=== PATIENT | male | born 1985 | race Caucasian/White ===

== ENCOUNTER 2017-08-17 09:51 | Emergency (ER) | payer MEDICAID ==
--- NOTE | 2017-08-17 11:03 | ED Physician Chart ---
ED Chief Complaint/HPI - Patient Information Date Seen:: 08/17/17 Time Seen:: 10:00 Chief Complaint:: HEROIN WITHDRAWL (NAUSEA, VOMITING, AND DIARRHEA) History of Present Illness:: THIS 31 YEAR OLD MALE WAS BROUGHT TO THE ER BY DEBRA MENG FOR MEDICAL CLEARANCE TO BOOK. HE HAD LAST USE HEROIN YESTERDAY A.M. AND TODAY HE HAS BEEN HAVING NAUSEA, VOMITING, DIARRHEA AND DIAPHORESIS. IN THE PAST 24 HOURS HE HAS HAD FIVE EPISODES OF VOMITING AND TWO EPISODES OF DIARRHEA. THERE WAS NO ASSOCIATED HEMATEMESIS OR BLOOD IN THE DIARRHEA. THE PATIENT HAS ALSO HAD CRAMPING ABDOMINAL PAIN WHICH IS DIFFUSE. THE CRAMPING IS A 9/10 SEVERITY. DOES NOT RADIATE INTO THE BACK. THIS EPISODE OF WITHDRAWAL SYMPTOMS IS ABOUT THE SAME SEVERITY IS WHAT HE HAS PREVIOUSLY EXPERIENCED. HE DENIES ANY OTHER MEDICAL PROBLEMS. Allergies:: Allergies Allergy/AdvReac Type Severity Reaction Status Date / Time No Known Allergies Allergy Verified 08/17/17 10:14 Vitals:: Vital Signs - 8 hr 08/17/17 10:15 Temp 97.9 F HR 87 RR 22 BP 135/94 O2 Sat % 98 Historian:: Patient Review:: Nurse's Note Reviewed (The reviewed nursing notes or reviewed on [facility] triage form.) ED Review of Systems - Review of Systems General/Constitutional: No fever, Chills, No weight loss, Diaphoresis, No edema , Loss of appetite Skin: No skin lesions, No rash, No bruising Head: No headache, No light-headedness Eyes: No loss of vision, No pain ENT: No earache, Nasal drainage, No sore throat Neck: No neck pain, No thyromegaly, No stiffness, No mass noted Cardio Vascular: No chest pain, Palpitations ( RAPID HEART RATE.), No orthopnea , No edema Pulmonary: No SOB, No cough, No sputum, No wheezing GI: Nausea, Vomiting, Diarrhea, Pain, No melena, No hematochezia, No constipation G/U: No frequency Musculoskeletal: Bone or joint pain, No back pain, Muscle pain Endocrine: No polyuria Psychiatric: Anxiety, No homicidal ideation, No auditory hallucination, No visual hallucination Hematopoietic: No bruising, No lymphadenopathy Allergic/Immuno: No urticaria, No angioedema Neurological: No syncope, No focal symptoms, Weakness ( This generalized), No seizure, No dizziness, No confusion, No vertigo ED Past Medical History - Past Medical History Past Medical History: No significant medical hx ( METHADONE) Social History: Smoker, Alcohol, Illicit Drug Use, Single ( AN[place] [employer] THAN THEY SAY WAS STILL'S IT'S ACTUALLY JUST A LITTLE BIT NORTH OF THE AIRPORT BUT IT'S RIGHT IN THE SAME YOU PASS THE SIGN THAT SAYS [facility]IRUD[facility] [place] ON [facility] WAS THAT I IS A LITTLE I WOULD LIKE SOMETHING BETTER THAN I LIKE THAT WILL ACTUALLY OKAY WITH THE DEBACLES AND GET IN AND OUT OF THE QUICK) Surgical History: None Family Medical History - Family Member Mother History Unknown: Yes ED Physical Exam - Physical Examination General/Constitutional: Well-developed, well-nourished, Alert, Non-toxic appearing, Ambulatory Other Gen/Cons comments:: RY. THE PATIENT HAS GENERALIZED DISCOMFORT FROM ABDOMINAL CRAMPING, VOMITING AND DIARRHEA. PATIENT IS AWAKE AND ALERT AND ABLE TO AMBULATE WITHOUT DIFFICULTY. Head: Atraumatic Eyes: Lids, conjuctiva normal, PERRL, EOMI Other Eyes comments:: TY. SCLERA ANICTERIC. Skin: Nl inspection, No rash, No skin lesions, No ecchymosis, Well hydrated, No lymphadenopathy ENMT: External ears, nose nl Other ENMT comments:: IC. THE PATIENT HAS A CLEAR NASAL DISCHARGE FROM BOTH SIDES OF THE NOSE. Neck: Nontender, Full ROM w/o pain, No JVD, No nuchal rigidity, No mass, No stridor Respiratory: Nl effort/Exclusion, Clear to Auscultation, No Wheeze/Rhonchi/Rales Cardio Vascular: RRR, No murmur, gallop, rubs, NL S1 S2 Other Cardio Vascular comments:: SE. PATIENT HAS ADEQUATE PULSES IN ALL FOUR EXTREMITIES. GI: No organomegaly, No hernia (ES. HYPERACTIVE BOWEL SOUND), Nondistended, No mass/bruits Other GI comments:: DS. NO EPIGASTRIC, RIGHT UPPER QUADRANT OR RIGHT LOWER QUADRANT TENDERNESS TO PALPATION. THERE IS MILD CARYL-UMBILICAL TENDERNESS WITHOUT ASSOCIATIVE REBOUND OR GARDING. RECTAL EXAM DEFERRED AT MY DISCRETION. ED Labs/Radiology/EKG Results - Lab Results Results: Laboratory Tests 08/17/17 08/17/17 12:40 12:40 WBC 8.3 RBC 4.52 Hgb 13.9 Hct 41.3 MCV 91.3 MCH 30.8 H MCHC Differential 33.7 RDW 12.9 Plt Count 233 MPV 7.9 Neutrophils % 75.4 Lymphocytes % 18.9 L Monocytes % 5.1 Eosinophils % 0.2 Basophils % 0.4 Sodium 132 L Potassium 4.6 Chloride 103 Carbon Dioxide 23.9 Anion Gap 9.7 BUN 17 Creatinine 0.7 Est GFR ( Amer) > 60.0 Est GFR (Non-Af Amer) > 60.0 BUN/Creatinine Ratio 24.3 Glucose 82 Calcium 9.2 Total Bilirubin 0.9 AST 253 H ALT 425 H Alkaline Phosphatase 103 Total Protein 7.0 Albumin 3.7 L Globulin 3.3 Albumin/Globulin Ratio 1.1 LABORATORY INTERPRETATION: THE CBC IS UNREMARKABLE IN THAT THERE IS NO LEUKOCYTOSIS, ANEMIA OR PLATELET DISORDER. METABOLIC STUDIES SHOW A MILD HYPONATREMIA OF 132 WHICH IS OF NO CLINICAL SIGNIFICANCE. THE REMAINDER OF THE ELECTRIC LIGHTS WERE ALL WITHIN NORMAL PARAMETERS. RENAL FUNCTION IS NORMAL. THERE IS MILD TO MODERATE ELEVATION OF LIVER FUNCTION STUDIES WITH A AST OF 253 AND AN ALT OF 425. ED Assessment - Assessment General Assessment: CASE SUMMARYTHIS 31-YEAR-OLD HEROINE ADDICT WAS BROUGHT TO THE EMERGENCY DEPARTMENT FOR TREATMENT OF NAUSEA, VOMITING AND DIARRHEA AND MEDICAL CLEARANCE TO BOOK.: OK.'S SYMPTOMS WERE ADDRESSED WITH IV NORMAL SALINE, IV ZOFRAN, AND IV ATIVAN. OVER THE COURSE OF THE EMERGENCY DEPARTMENT EVALUATION, THE PATIENT SIGNIFICANTLY IMPROVED. ED. HE WAS DEEMED MEDICALLY CLEAR FOR BOOKING AND DISCHARGED WITH THE PRESCRIPTION FOR ZOFRAN 4 MG 26H PRN FURTHER NAUSEA OR VOMITING. NG. HE WAS IN STABLE CONDITION WHEN DISCHARGE AND WILL HAVE ACCESS TO MEDICAL CARE IN THE [facility]. MDM DDX FOR NAUSEA, VOMITING, AND DIARRHEA. NOT ACUTE APPENDICITIS BASED ON THE PATIENT'S HISTORY OF OF HEROIN WITHDRAWAL AND PHYSICAL EXAMINATION. NOT ACUTE PANCREATITIS BASED ON PHYSICAL EXAM AND HISTORY. ED Septic Shock - . Is Septic Shock (SBP<90, OR Lactate>4 mmol\L) present?: No - <6hrs of presentation: Vital Signs: Vital Signs - 8 hr 08/17/17 10:15 Temp 97.9 F HR 87 RR 22 BP 135/94 O2 Sat % 98 ED Reassessment (Disposition) - Reassessment Reassessment Condition:: Improved - Aftercare/Follow up Instructions Aftercare/Follow-Up Instructions:: Counseled pt regarding lab results/diagnosis & need follow up - Patient Disposition Discharge/Transfer:: Usp/Half-Way Accepting Physician:: NOT APPLICABLE ED Discharge Plan - Patient Disposition Admit/Discharge/Transfer: Other Instructions: Narcotic Withdrawal
[2017-08-17] MEDS ORDERED: Sodium Chloride 0.9% 2,000 ML IV ONE (11:25)
[2017-08-17 12:48] LABS: % BASOPHILS 0.4 % (0.0-2.0); % EOSINOPHILS 0.2 % (0.0-5.0); % LYMPHOCYTES 18.9 % (20.0-50.0); % MONOCYTES 5.1 % (2.0-10.0); % NEUTROPHILS 75.4 % (40.0-80.0); HEMATOCRIT 41.3 % (41.0-60); HEMOGLOBIN 13.9 gm/dL (12-16); LYMPHOCYTE ABSOLUTE 1.6 Th/cmm (1.5-3.0); MEAN CELL VOLUME 91.3 fl (80-99); MEAN CORPUSCULAR HEMOGLOBIN 30.8 pg (26.0-30.0); MEAN CORPUSCULAR HGB CONC 33.7 pg (28.0-36.0); MEAN PLATELET VOLUME 7.9 fl; MONOCYTE ABSOLUTE 0.4 Th/cmm (0.3-1.0); NEUTROPHILE ABSOLUTE 6.3 Th/cmm (1.8-8.0); PLATELET COUNT 233 Th/cmm (150-400); RED BLOOD COUNT 4.52 Mil/cmm (4.30-5.70); RED CELL DISTRIBUTION WIDTH 12.9 % (11.5-20.0); WHITE BLOOD COUNT 8.3 Th/cmm (4.8-10.8)
[2017-08-17 13:03] LABS: ALB/GLOB RATIO 1.1 (1.0-1.8); ALBUMIN 3.7 gm/dL (4.2-5.5); ALKALINE PHOSPHATASE 103 U/L (34-104); ANION GAP 9.7 (7.0-16.0); BILIRUBIN,TOTAL 0.9 mg/dL (0.3-1.0); BUN - UREA NITROGEN 17 mg/dL (7-25); CALCIUM SERUM 9.2 mg/dL (8.6-10.3); CARBON DIOXIDE 23.9 mEq/L (21.0-31.0); CHLORIDE 103 mEq/L (98-107); CREATININE - SERUM 0.7 mg/dL (0.7-1.3); GFR AFRICAN-AMERICAN > 60.0 ml/min (>90); GFR NON AFRICAN-AMERICAN > 60.0 ml/min; GLUCOSE 82 mg/dL (70-105); POTASSIUM SERUM 4.6 mEq/L (3.5-5.1); SGOT 253 U/L (13-39); SGPT/ALT 425 U/L (7-52); SODIUM SERUM 132 mEq/L (136-145)
== END 2017-08-17 13:18 | disposition short-term general hospital (02) ==
LOC: ER 09:51
DX: F11.23 Opioid dependence with withdrawal (principal); F17.200 Nicotine dependence, unspecified, uncomplicated
CPT/HCPCS: 99284; 96374; 96375; 36415; 85025; 80053; J2060; J2405; J7030; Z7502